=== PATIENT | female | born 1985 | race African-American/Black ===

== ENCOUNTER 2017-03-19 10:41 | Emergency (ER) | payer OTHER ==
[~2017-03-19] VITALS: Ht 154.9 cm; Wt 59.0 kg
[2017-03-19 11:11] LABS: APPEARANCE,URINE CLEAR; KETONES,URINE NEGATIVE (NEGATIVE); LEUKOCYTE ESTERASE ,URINE 2+ (NEGATIVE); NITRITE,URINE NEGATIVE (NEGATIVE); PH,URINE 8 (4.5-8.0); PROTEIN,URINE NEGATIVE (NEGATIVE); UROBILINOGEN,URINE NORMAL MG/DL (0.0-1.0)
[2017-03-19 11:27] VITALS: BP 122/77
[2017-03-19 11:27] LABS: BACTERIA,URINE FEW /HPF; RBC,URINE 0-2 /HPF (0 - 2); SQUAMOUS EPITHELIAL CELL,UR MODERATE /LPF (NONE/OCC)
[2017-03-19 11:45] LABS: BASOPHILS % (AUTO) 0.8 % (0.0-2.0); EOSINOPHILS % (AUTO) 2.3 % (0.0-3.0); LYMPHOCYTES % (AUTO) 19.4 % (20.0-45.0); MEAN CORPUSCULAR HEMOGLOBIN 21.7 PG (27.0-31.0); MEAN CORPUSCULAR HGB CONC 29.3 G/DL (32.0-36.0); MEAN CORPUSCULAR VOLUME 74 FL (80-99); MEAN PLATELET VOLUME 7.7 FL (6.5-10.1); MONOCYTES % (AUTO) 6.8 % (1.0-10.0); NEUTROPHILS % (AUTO) 70.7 % (45.0-75.0); PLATELET COUNT 234 K/UL (150-450); RED BLOOD COUNT 5.81 M/UL (4.20-5.40); RED CELL DISTRIBUTION WIDTH 12.2 % (11.6-14.8); WHITE BLOOD COUNT 9.1 K/UL (4.8-10.8)
[2017-03-19 11:58] LABS: PROTHROMBIN TIME 10.2 SEC (9.30-11.50)
[2017-03-19 11:59] LABS: ALANINE AMINOTRANSFERASE 6 U/L (3-33); ALBUMIN/GLOBULIN RATIO 1.4 (1.0-2.7); ANION GAP 12 (5-15); ASPARTATE AMINO TRANSFERASE 13 U/L (5-40); CALCIUM 9.8 mg/dL (8.6-10.2); CARBON DIOXIDE 25 mEQ/L (20-30); CHLORIDE 98 mEQ/L (98-107); GLOMERULAR FILTRATION RATE > 60 mL/min (>60); HEMOLYSIS 13; LIPASE 25 U/L (< 60); POTASSIUM 3.5 mEQ/L (3.4-4.9); SODIUM 135 mEQ/L (135-145); TOTAL PROTEIN 7.4 g/dL (6.6-8.7)
[2017-03-19] MEDS ORDERED: DICLEGIS DR 101 EACH PO (12:37)
[2017-03-19 12:48] VITALS: BP 137/80
--- NOTE | 2017-03-20 07:05 | Emergency Room Report ---
History of Present Illness General Chief Complaint: General Complaint Source: Patient Present Illness HPI Patient is a 31-year-old female who presented after increased suprapubic cramping as well as bleeding. Patient said that she had passed large amount of blood yesterday. Patient had decreased bleeding since. She stated that she takes she had a miscarriage. Patient had been approximately 6 weeks. She was . She denied any fever. She had been vomiting intermittently Allergies: Coded Allergies: No Known Allergies (Unverified , 03/19/17) Patient History Past Medical History: see triage record Past Surgical History: unable to obtain Pertinent Family History: unable to obtain Last Menstrual Period: 02/04/17 : 3 Para: 2 Reviewed Nursing Documentation: PMH: Agreed, PSxH: Agreed Nursing Documentation-PMH Past Medical History: No Stated History Review of Systems All Other Systems: negative except mentioned in HPI Physical Exam Vital Signs Date Time Temp Pulse Resp B/P Pulse Ox O2 Delivery O2 Flow Rate FiO2 03/19/17 10:47 98.1 78 20 138/95 98 Room Air Sp02 EP Interpretation: reviewed, normal General Appearance: normal inspection, well appearing, no apparent distress, alert, GCS 15 Head: atraumatic ENT: normal ENT inspection, hearing grossly normal, normal voice Neck: normal inspection, full range of motion, supple, no bony tend Respiratory: normal inspection, lungs clear, normal breath sounds, no respiratory distress, no retraction, no wheezing Cardiovascular #1: regular rate, rhythm, no edema Gastrointestinal: normal inspection, normal bowel sounds, non tender, soft, no guarding, no hernia Genitourinary: no CVA tenderness Musculoskeletal: normal inspection, back normal, normal range of motion Neurologic: normal inspection, alert, responsive, speech normal Psychiatric: normal inspection, judgement/insight normal, mood/affect normal Skin: normal inspection, normal color, no rash Medical Decision Making Diagnostic Impression: Primary Impression: Threatened in early ER Course Patient presented for vaginal bleeding. Differential diagnosis included wasn't limited to ectopic , menorrhagia, coagulopathy, incomplete , threatened among others.Because of complexity of patient's case laboratory testing and imaging studies were ordered. Patient was noted to have ultrasound with IUP at 6 weeks with positive heart tones. The patient appears have a threatened miscarriage. Patient was advised return precautions including increased bleeding dizziness or other concerns. Labs Test 03/19/17 10:51 03/19/17 11:13 Urine Color Pale yellow Urine Appearance Clear Urine pH 8 (4.5-8.0) Urine Specific [place] 1.010 (1.005-1.035) Urine Protein Negative (NEGATIVE) Urine Glucose (UA) Negative (NEGATIVE) Urine Ketones Negative (NEGATIVE) Urine Occult Blood Negative (NEGATIVE) Urine Nitrite Negative (NEGATIVE) Urine Bilirubin Negative (NEGATIVE) Urine Urobilinogen Normal MG/DL (0.0-1.0) Urine Leukocyte Esterase 2+ (NEGATIVE) Urine RBC 0-2 /HPF (0 - 2) Urine WBC 2-4 /HPF (0 - 2) Urine Squamous Epithelial Cells Moderate /LPF (NONE/OCC) Urine Bacteria Few /HPF (NONE) White Blood Count 9.1 K/UL (4.8-10.8) Red Blood Count 5.81 M/UL (4.20-5.40) Hemoglobin 12.6 G/DL (12.0-16.0) Hematocrit 43.1 % (37.0-47.0) Mean Corpuscular Volume 74 FL (80-99) Mean Corpuscular Hemoglobin 21.7 PG (27.0-31.0) Mean Corpuscular Hemoglobin Concent 29.3 G/DL (32.0-36.0) Red Cell Distribution Width 12.2 % (11.6-14.8) Platelet Count 234 K/UL (150-450) Mean Platelet Volume 7.7 FL (6.5-10.1) Neutrophils (%) (Auto) 70.7 % (45.0-75.0) Lymphocytes (%) (Auto) 19.4 % (20.0-45.0) Monocytes (%) (Auto) 6.8 % (1.0-10.0) Eosinophils (%) (Auto) 2.3 % (0.0-3.0) Basophils (%) (Auto) 0.8 % (0.0-2.0) Prothrombin Time 10.2 SEC (9.30-11.50) Prothromb Time International Ratio 1.0 (0.9-1.1) Activated Partial Thromboplast Time 30 SEC (23-33) Sodium Level 135 mEQ/L (135-145) Potassium Level 3.5 mEQ/L (3.4-4.9) Chloride Level 98 mEQ/L (98-107) Carbon Dioxide Level 25 mEQ/L (20-30) Anion Gap 12 (5-15) Blood Urea Nitrogen 8 mg/dL (7-23) Creatinine 1.0 mg/dL (0.5-0.9) Estimat Glomerular Filtration Rate > 60 mL/min (>60) Glucose Level 98 mg/dL (74-106) Calcium Level 9.8 mg/dL (8.6-10.2) Total Bilirubin 0.4 mg/dL (0.0-1.2) Aspartate Amino Transf (AST/SGOT) 13 U/L (5-40) Alanine Aminotransferase (ALT/SGPT) 6 U/L (3-33) Alkaline Phosphatase 48 U/L (35-104) Total Protein 7.4 g/dL (6.6-8.7) Albumin 4.4 g/dL (3.5-5.2) Globulin 3.0 g/dL Albumin/Globulin Ratio 1.4 (1.0-2.7) Lipase 25 U/L (< 60) Human Chorionic Gonadotropin, Quant 38920 mIU/mL Last Vital Signs Date Time Temp Pulse Resp B/P Pulse Ox O2 Delivery O2 Flow Rate FiO2 03/19/17 12:48 69 14 137/80 100 Room Air 03/19/17 11:27 98.2 Status: improved Disposition: HOME, SELF-CARE Condition: Stable Scripts Doxylamine/Pyridoxine Hcl (KIARA SAPP 10-10 MG TABLET) 1 Each Tablet. 1 EACH PO QHS for Nausea & Vomiting, #30 TAB Prov: Archie Gonsales 03/19/17 Patient Instructions: Threatened Miscarriage Archie Gonsales Mar 20, 2017 07:05
--- NOTE | 2017-03-22 08:38 | Diagnostic Imaging Report ---
Indication: Positive test, pelvic pain and vaginal bleeding, blood clots, nausea, vomiting Technique: Transabdominal and transvaginal images Comparison: None Findings: Uterus measures 11.9 cm length by 5.9 cm AP. Within the endometrium, there is a gestational sac containing a pole. This demonstrates positive heart activity, heart rate 113 beats per minute. Wainwright-rump length is 8.3 mm, corresponding to an estimated gestational age of 6 weeks 4 days. There is also a small yolk sac demonstrated. Adjacent to the gestational sac, there is a hypoechoic area measuring 3 x 0.7 cm, most likely a small subchorionic hemorrhage. No myometrial abnormalities demonstrated. The left ovary measures 3.3 cm in length. Right ovary measures 4.1 cm in length. No adnexal mass. No free cul-de-sac fluid. Impression: Positive for 6 week 4 day, by crown-rump length measurement, single live intrauterine . Positive for 3 x 0.7 cm subchorionic hemorrhage Negative for adnexal mass
== END 2017-03-19 12:51 | disposition home or self-care (01) ==
LOC: EMR 11:03
DX: O20.0 Threatened abortion (principal); R11.10 Vomiting, unspecified; Z3A.01 Less than 8 weeks gestation of pregnancy
CPT/HCPCS: 36415; 76801; 76830; 80053; 81003; 83690; 84702; 85025; 85610; 85730; 86850; 86900; 86901; 96374

== ENCOUNTER 2017-04-15 18:56 | Emergency (ER) | payer OTHER ==
[~2017-04-15] VITALS: Ht 154.9 cm; Wt 61.2 kg
[~2017-04-15 18:56] MED LIST: DICLEGIS DR 101 EACH PO
[2017-04-15] MEDS ORDERED: IBUPROFEN600 MG ORAL (19:08)
[2017-04-15 19:20] VITALS: BP 145/96
[2017-04-15] MEDS ORDERED: TYLENOL EXTRA500 MG ORAL (19:20)
[2017-04-15 19:45] VITALS: BP 145/96
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
== END 2017-04-15 19:45 | disposition home or self-care (01) ==
LOC: EMR 19:40
DX: S01.81XA Laceration without foreign body of other part of head, initial encounter (principal); S00.03XA Contusion of scalp, initial encounter; Y04.2XXA Assault by strike against or bumped into by another person, initial encounter; Y92.89 Other specified places as the place of occurrence of the external cause
CPT/HCPCS: 99283